=== PATIENT | female | born 1975 | race Caucasian/White ===

== ENCOUNTER 2016-09-16 12:00 | Emergency (ER) | payer OTHER ==
[~2016-09-16] VITALS: Ht 172.7 cm; Wt 104.5 kg
[2016-09-16 12:26] VITALS: BP 162/104; PULSE 117; RESP 18; O2SAT 99
--- NOTE | 2016-09-16 12:31 | ED.REPORT ---
HPI-Abd Pain F 40 and Over Date of Service Sep 16, 2016 ED Provider: History of Present Illness: right lower abd started this am at 7. no nausea or vomiting. hx of ovarian fibroids. comes in waves 01/02, primary care yang at [facility]. Nursing Notes Stated Complaint: APPENDIX AREA PAIN Chief Complaint: Female Abdominal Pain Nursing Notes Reviewed: Yes Allergies: Coded Allergies: No Known Allergies (Verified , 12/19/03) General Time Seen by MD: 12:31 Chief Complaint Abdominal pain Hx Obtained From: Patient Sudden in Onset?: Yes Onset Occurred: 5 - 8 hours ago Symptom Duration: Since onset Past Medical History Past Medical History Denies: Asthma, Diabetes mellitus Past Surgical History Reports: (times 3) Smoking History Never Smoker Social History Alcohol Use: Denies alcohol use Drug Use: Denies drug use Other Social History: Occupation lives with , no work or school 09/16/2016 Ambulatory Status Independent Review of Systems Basic Review of Systems Eyes: Vision NL, No discharge Skin: No bruising, No rash, No itch Psychiatric: Normal thought content Physical Exam Vital Signs Vital Signs (First) Date Time Temp Pulse Resp B/P Pulse Ox O2 Delivery O2 Flow Rate FiO2 09/16/16 12:26 37.7 117 18 162/104 99 Room Air Initial VS: Reviewed, Vital signs abnormal Head / Eyes: Atraumatic, Normocephalic, PERRL ENT: Mucous membranes moist, Conjunctiva normal, No scleral icterus Neck: Supple, Non-tender, Full range of motion Lymphatic: No lymphadenopathy Extremities: Vascular intact, Neuro intact, No swelling, No tenderness Skin: Warm, Dry, No cyanosis Neurologic: Alert, Oriented, Nonfocal Psychiatric: Mood/affect normal, Behavior normal, Normal thought content General/Constitutional: Awake, Alert, No acute distress, Well appearing, Well developed, Well hydrated Respiratory / Chest: Atraumatic, Breath sounds NL, Breath sounds = bilat, No respiratory distress Cardiovascular: Heart rate NL, Regular rhythm, Heart sounds NL, No gallop, No murmurs Abdomen: Atraumatic, Soft Tenderness/Guarding/Rebound: Positive: Tender RLQ... (Mild) Back: Atraumatic, Inspection NL, Full range of motion, Painless range of motion Interpretation & Diagnostics Lab Results Interpretation Result Diagram: 09/16/16 1315 09/16/16 1315 Test 09/16/16 12:35 09/16/16 13:15 Urine Color Yellow (YELLOW) Urine Appearance Hazy (CLEAR,HAZY) Urine pH 6.5 (5.0-8.0) Urine Specific [place] 1.015 (1.003-1.035) Urine Protein Negativemg/dL (NEG,TRACE) Urine Glucose (UA) Negativemg/dL (NEGATIVE) Urine Ketones Negativemg/dL (NEGATIVE) Urine Occult Blood Small (NEGATIVE) Urine Nitrite Negative (NEGATIVE) Urine Bilirubin Negative (NEGATIVE) Urine Urobilinogen Normalmg/dL (NORMAL) Urine Leukocyte Esterase Negative (NEGATIVE) Urine RBC 0-2/hpf (0-2) Urine WBC 0-5/hpf (0-5) Urine Epithelial Cells Occasional/hpf (NONE-MOD) Urine Crystals None seen (NONE SEEN) Urine Bacteria None/hpf (NONE-FEW) Urine Hyaline Casts None/lpf (NONE) Urine Granular Casts None seen (NONE SEEN) Urine Waxy Casts None seen (NONE SEEN) Urine Red Blood Cell Casts None seen (NONE SEEN) Urine White Blood Cell Casts None seen (NONE SEEN) Urine Mucus None seen (None Seen) Urine Trichomonas None seen (NONE SEEN) Urine Yeast None (NONE SEEN) Urinalysis Comment None Urine Culture Reflexed Not indicated Hold Urine Received (Received) White Blood Count 9.3th/mm3 (3.8-10.1) Red Blood Count 4.61mil/mm3 (3.90-5.20) Hemoglobin 13.7g/dL (12.0-15.6) Hematocrit 41.9% (35.0-46.0) Mean Corpuscular Volume 90.9fL (81-100) Mean Corpuscular Hemoglobin 29.7pg (27.0-35.0) Mean Corpuscular Hemoglobin Concent 32.7% (32.0-37.0) Red Cell Distribution Width 14.1% (12.3-15.4) Platelet Count 334bil/L (150-400) Neutrophils (%) (Auto) 76.0% (40-74) Lymphocytes (%) (Auto) 18.0% (14-46) Monocytes (%) (Auto) 5.1% (4-12) Eosinophils (%) (Auto) 0.5% (0-5) Basophils (%) (Auto) 0.2% (0-3) Sodium Level 138mEq/L (134-144) Potassium Level 4.0mEq/L (3.5-5.2) Chloride Level 99mEq/L (97-108) Carbon Dioxide Level 23mmol/L (18-29) Blood Urea Nitrogen 10mg/dL (6-24) Creatinine 0.75mg/dL (0.57-1.00) Estimat Glomerular Filtration Rate 122mL/min (>59) Glucose Level 118mg/dL (60-99) Calcium Level 10.7mg/dL (8.5-10.1) Total Bilirubin 0.3mg/dL (0.0-1.2) Aspartate Amino Transf (AST/SGOT) 24U/L (0-50) Alanine Aminotransferase (ALT/SGPT) 24U/L (0-32) Alkaline Phosphatase 77U/L (25-150) Total Protein 7.9g/dL (6.4-8.4) Albumin 4.5g/dL (3.4-5.0) Lab Results Interpretation: urine is negative CT Abd / Pelvis Interpretation TECHNIQUE: After the administration of intravenous contrast, 5 mm thick sections acquired from the diaphragm to the symphysis. 5 mm coronal and sagittal reformats were acquired. For radiation dose reduction, the following was used: automated exposure control, adjustment of mA and/or kV according to patient size. COMPARISON: None. FINDINGS: Image quality: Excellent. ABDOMEN: Lung bases: Lung bases are clear. Heart size is normal. Solid organs: Liver is enlarged, measuring roughly 22.3 cm craniocaudal, and demonstrates diffusely decreased density, indicating fatty infiltration. Gallbladder is within normal limits. Biliary system is non dilated. Pancreas enhances normally. No adrenal nodules. Scarring within the inferior pole right kidney is present. Kidneys demonstrate otherwise normal size and enhancement, without hydronephrosis. Peritoneum and bowel: Bowel loops demonstrate normal wall thickness and caliber. No free air. Small amount of free fluid in the pelvis, within physiological limits in a menstruating female. Appendix not seen. No evidence of appendicitis. Nodes and vessels: No retroperitoneal or mesenteric adenopathy by size criteria. Aorta and inferior vena cava are normal in size. Miscellaneous: No ventral hernias. PELVIS: Genitourinary: Bladder wall thickness is normal. Miscellaneous: No inguinal hernias or adenopathy. Bones: No suspicious bony lesions. No vertebral body compression fractures. IMPRESSION: 1. Small amount of free fluid within the pelvis, within physiological limits in a menstruating female. 2. Appendix not seen. No evidence of appendicitis. 3. Hepatic steatosis. 4. Scarring of the inferior pole right kidney. Dictated by: Yulisa Caraballo M.D. on 09/16/2016 at 14:46 Approved by: Yulisa Caraballo M.D. on 09/16/2016 at 14:48 US Focused non-OB Pelvis ROCEDURE: US PELVIC SONOGRAM + TRANSVAGINAL SONOGRAM INDICATIONS: rm d TECHNIQUE: Real-time scanning was performed of the pelvic organs, with image documentation. Additional endovaginal scanning was necessary due to incomplete visualization of the adnexal and endometrial structures by transabdominal scanning. COMPARISON: [facility], US, PELVIS SONO TRANSVAGINAL (PNL), 07/09/2012, 10:38. FINDINGS: (orthogonal measurements) Uterus size: 8.65 cm, 6.65 cm, 7.70 cm Endometrium thickness: 7.20 mm Right ovary size: Not visualized Left ovary size: 3.86 cm, 2.87 cm Transabdominal scanning: Limited scanning through the kidneys shows no hydronephrosis. No pathologic free abdominal or pelvic fluid. Endovaginal scanning: Uterus: Uterus is normal in size and appearance. Endometrium is within normal physiologic limits. The 1.8 x 2.3 cm anterior subserosal fibroid redemonstrated. Ovaries: Complex exophytic cyst involves the left ovary with mildly thickened peripheral wall measuring 1.9 x 1.5 x 2.3 cm. The appendix is not visualized. IMPRESSION: 1. Complex, thickwalled left ovarian cyst. Followup recommended in 6-8 weeks. 2. The appendix is not visualized nor the right ovary which cannot be evaluated. 3. Subserosal fibroid. Re-Eval/Medical Decision Med Decision/Clinical Course 40 year old female presents for evualation of right lower abd pain which started this am. Patient denies nausea or vomiting. US does not identify the right ovary. ABD CT does not show the paapendix but does not show any sign of secondary infection. The labs are normal and patients pain has resolved. No sign of peritonitis or etopic Discharge & Departure Primary Impression: Abdominal pain Abdominal location: right lower quadrant Qualified Code: R10.31 - Right lower quadrant pain Disposition: Home Patient Instructions: Acute Abdominal Pain (ED) Additional Instructions: Your CBC is normal. The chemistry shows mild elevation in glucose at 118 and calcium at 10.5. Please follow with primary care to address these issues. The ultrasound did not identify the right ovary, it did show that there is a cyst on the left. Please discuss this your OB at your Monday appointment. You likely will need a repeat to make sure it is resolving. Your urine is negative. The CT does not identify the appendix but it does not show any secondary signs of infection. The pain has resolved. Return if the pain returns. Referrals: Meera Yang MD (PCP) EDSupervising Provider for APC: Kaiden Boyd MD copies to: Meera Yang MD, Sue ARNP Sep 16, 2016 12:31
[2016-09-16] MEDS ORDERED: 0.9% Sodium Chloride 1,000 ML IV ONE (12:50)
[2016-09-16 13:35] LABS: BASOPHILS % (AUTO) 0.2 % (0-3); EOSINOPHILS % (AUTO) 0.5 % (0-5); MONOCYTES % (AUTO) 5.1 % (4-12); Mean Corpuscular Hemoglobin 29.7 pg (27.0-35.0); Mean Corpuscular Volume 90.9 fL (81-100); Platelet Count 334 bil/L (150-400)
[2016-09-16 14:15] LABS: APPEARANCE,URINE HAZY (CLEAR,HAZY); COLOR,URINE YELLOW (YELLOW); OCCULT BLOOD,URINE SMALL (NEGATIVE); PH,URINE 6.5 (5.0-8.0); UROBILINOGEN,URINE NORMAL (NORMAL)
--- NOTE | 2016-09-16 14:49 | DRSVH ---
PROCEDURE: CT ABDOMEN AND PELVIS WITH CONTRAST ([id number]) INDICATIONS: RIGHT LOWER ABDOMINAL PAIN TECHNIQUE: After the administration of intravenous contrast, 5 mm thick sections acquired from the diaphragm to the symphysis. 5 mm coronal and sagittal reformats were acquired. For radiation dose reduction, the following was used: automated exposure control, adjustment of mA and/or kV according to patient siz e. COMPARISON: None. FINDINGS: Image quality: Excellent. ABDOMEN: Lung bases: Lung bases are clear. Heart size is normal. Solid organs: Liver is enlarged, measuring roughly 22.3 cm craniocaudal, and demonstrates diffusely decreased density, indicating fatty infiltration. Gallbladder is within normal limits. Biliary syste m is non dilated. Pancreas enhances normally. No adrenal nodules. Scarring within the inferior samanta e right kidney is present. Kidneys demonstrate otherwise normal size and enhancement, without hydrone phrosis. Peritoneum and bowel: Bowel loops demonstrate normal wall thickness and caliber. No free air. Small amount of free fluid in the pelvis, within physiological limits in a menstruating female. Appendix n ot seen. No evidence of appendicitis. Nodes and vessels: No retroperitoneal or mesenteric adenopathy by size criteria. Aorta and inferior vena cava are normal in size. Miscellaneous: No ventral hernias. PELVIS: Genitourinary: Bladder wall thickness is normal. Miscellaneous: No inguinal hernias or adenopathy. Bones: No suspicious bony lesions. No vertebral body compression fractures. IMPRESSION: 1. Small amount of free fluid within the pelvis, within physiological limits in a menstruating female . 2. Appendix not seen. No evidence of appendicitis. 3. Hepatic steatosis. 4. Scarring of the inferior pole right kidney. Dictated by: Yulisa Caraballo M.D. on 09/16/2016 at 14:46 Approved by: Yulisa Caraballo M.D. on 09/16/2016 at 14:48
--- NOTE | 2016-09-16 15:26 | DRSVH ---
PROCEDURE: US PELVIC SONOGRAM + TRANSVAGINAL SONOGRAM INDICATIONS: rm d TECHNIQUE: Real-time scanning was performed of the pelvic organs, with image documentation. Additional endovagi nal scanning was necessary due to incomplete visualization of the adnexal and endometrial structures by transabdominal scanning. COMPARISON: [facility], US, PELVIS SONO TRANSVAGINAL (PNL), 07/09/2012, 10:38. FINDINGS: (orthogonal measurements) Uterus size: 8.65 cm, 6.65 cm, 7.70 cm Endometrium thickness: 7.20 mm Right ovary size: Not visualized Left ovary size: 3.86 cm, 2.87 cm Transabdominal scanning: Limited scanning through the kidneys shows no hydronephrosis. No pathologi c free abdominal or pelvic fluid. Endovaginal scanning: Uterus: Uterus is normal in size and appearance. Endometrium is within normal physiologic limits. The 1.8 x 2.3 cm anterior subserosal fibroid redemonstrated. Ovaries: Complex exophytic cyst involves the left ovary with mildly thickened peripheral wall measuri ng 1.9 x 1.5 x 2.3 cm. The appendix is not visualized. IMPRESSION: 1. Complex, thickwalled left ovarian cyst. Followup recommended in 6-8 weeks. 2. The appendix is not visualized nor the right ovary which cannot be evaluated. 3. Subserosal fibroid. Dictated by: Jb Mckenna [facility] Interpreted: Tegan Walters MD on 09/16/2016 at 15:23 Transcribed by: MEGHAN on 09/16/2016 at 15:26 Approved by: Tegan Walters MD, PhD on 09/16/2016 at 17:03
[2016-09-16 16:23] VITALS: BP 156/92; PULSE 101; O2SAT 98
== END 2016-09-16 16:25 | disposition home or self-care (01) ==
LOC: SED 12:00
DX: R10.31 Right lower quadrant pain (principal); K76.0 Fatty (change of) liver, not elsewhere classified
CPT/HCPCS: 36415; 74177; 76830; 76856; 80053; 81000; 81025; 85025; 99284; Q9967